=== PATIENT | male | born 1995 | race American Indian/Alaskan Native ===

== ENCOUNTER 2018-08-06 12:23 | Emergency (ER) | payer OTHER ==
[2018-08-06] MEDS ORDERED: BOOSTRIX IM ONE (12:26)
--- NOTE | 2018-08-06 12:27 | Event Note ---
ED Screening Note Date of service: 08/06/18 Time: 12:25 ED Screening Note: This is a 22 y.o. M. that presents to the ER with laceration to left 1st distal digit. Patient cut finger at work last night accidentally with a knife. Tetanus not UTD. This initial assessment/diagnostic orders/clinical plan/treatment(s) is/are subject to change based on patients health status, clinical progression and re- assessment by fellow clinical providers in the ED. Further treatment and workup at subsequent clinical providers discretion. Patient/guardian urged not to elope from the ED as their condition may be serious if not clinically assessed and managed. Initial orders include: XR left fingers [employer]
--- NOTE | 2018-08-06 13:10 | XRay Report ---
LEFT FINGER RADIOGRAPHS INDICATION: Laceration distal phalanx. COMPARISON: None similar at this institution. FINDINGS: AP view of the left hand with oblique and lateral projections centered on the index finger demonstrate soft tissue irregularity/deep laceration distally with extensive overlying bandage artifact. Intact bones. No radiopaque foreign body. CONCLUSION: Left second digit soft tissue injury distally without acute bony abnormality, as described. Please correlate. Thank you for the opportunity to participate in this patient's care.
[2018-08-06] MEDS ORDERED: TORADOL IM ONE (14:12)
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
[2018-08-06] MEDS ORDERED: NORCO 5/325 PO ONE (14:18)
[2018-08-06] MEDS ORDERED: NACL 0.9% IR ONE (14:25)
[2018-08-06] MEDS ORDERED: XYLOCAINE 1% MPF 5 mL INFILTRATI ONE (14:37)
[2018-08-06 15:45] VITALS: BP 124/66
== END 2018-08-06 15:46 | disposition home or self-care (01) ==
LOC: ED 12:23
DX: S61.012A Laceration without foreign body of left thumb without damage to nail, initial encounter (principal); W26.0XXA Contact with knife, initial encounter; Y93.89 Activity, other specified; Y92.89 Other specified places as the place of occurrence of the external cause; Y99.8 Other external cause status
CPT/HCPCS: 73140; 90471; 90715; 96372; 99283; J1885